=== PATIENT | male | born 1975 | race Caucasian/White ===

== ENCOUNTER → 2021-12-08 09:51 | Outpatient (BNVA) | payer MEDICARE, MEDICAID, SELFPAY | PROVIDERS: Family Provider Nurse Practitioner; PCP Nurse Practitioner; Visit Provider Nurse Practitioner | DX: R19.7 Diarrhea, unspecified (principal); Z20.822 Contact with and (suspected) exposure to COVID-19 | CPT/HCPCS: 80053; 81000; 85025; 87635 ==

== ENCOUNTER → 2021-12-21 14:35 | Outpatient (BNVA) | payer MEDICARE, MEDICAID, SELFPAY | PROVIDERS: Family Provider Nurse Practitioner; PCP Nurse Practitioner; Visit Provider Nurse Practitioner | DX: U09.9 Post COVID-19 condition, unspecified (principal); R00.2 Palpitations | CPT/HCPCS: 80053; 81000; 84443; 85025 ==

== ENCOUNTER → 2022-07-19 10:49 | Outpatient (BNVA) | payer MEDICARE, MEDICAID, SELFPAY | PROVIDERS: Family Provider Nurse Practitioner; PCP Nurse Practitioner; Visit Provider Nurse Practitioner Family | DX: Z20.822 Contact with and (suspected) exposure to COVID-19 (principal); J02.9 Acute pharyngitis, unspecified | CPT/HCPCS: 87426 ==